=== PATIENT | male | born 1950 | race Caucasian/White ===

== ENCOUNTER → 2020-09-24 | Outpatient (CLI) | payer OTHER | END | disposition home or self-care (01) | LOC: EDSTATUS 09-19 16:00 → CFH 06:52 → EDSTATUS 07:00 | PROVIDERS: ATTEND Student in an Organized Health Care Education/Training Program | DX: M47.813 Spondylosis without myelopathy or radiculopathy, cervicothoracic region (principal); M48.02 Spinal stenosis, cervical region | CPT/HCPCS: 70250; 72141 ==